=== PATIENT | male | born 1955 | race Caucasian/White ===

== ENCOUNTER 2019-07-31 18:50 | Observation (INO) | payer MEDICARE, OTHER ==
[~2019-07-31] VITALS: Ht 180.3 cm; Wt 94.0 kg
[~2019-07-31 18:50] MED LIST: Aspirin EC81 MG PO; B Complex-Foli1 EACH PO; B Complex1 EAC2 PO; CALCA500CH PO; CEPH500 PO; CHRO200 PO; CLON.5 PO; Crestor20 MG PO; DISU500; FISH OIL 1,2001 EAC1 PO; FISH1000 PO; Iron Supplemen325 MG PO; MAGNESIUM100 MG PO; MAGOXI400 PO; MELA3 PO; METO25ER PO; NAPR500 PO; NITR.4SL SL; OMEPRAZOLE20 MG PO; Pepcid40 MG PO; Percocet 5-3251 EACH PO; TRAM50 PO; Viagra100 MG PO; Vitamin C100 M1 PO; Vitamin C100 MG PO; Vitamin D400 UNI1 PO; ZOLP5 PO
[2019-07-31 19:22] LABS: BASOPHILS ABSOLUTE AUTO 0.05 K/mm3 (0.00-0.23); BASOPHILS PERCENT AUTO 1 % (0-2); EOSINOPHILS ABSOLUTE AUTO 0.19 K/mm3 (0.00-0.68); EOSINOPHILS PERCENT AUTO 2 % (0-6); Hematocrit 44.2 % (37.0-53.0); Hemoglobin 14.7 g/dL (13.5-17.5); IMMATURE GRAN ABSOLUTE AUTO 0.03 K/mm3 (0.00-0.10); IMMATURE GRAN PERCENT AUTO 0 % (0-1); LYMPHOCYTES ABSOLUTE AUTO 2.14 K/mm3 (0.84-5.20); LYMPHOCYTES PERCENT AUTO 23 % (21-46); MONOCYTES ABSOLUTE AUTO 0.73 K/mm3 (0.16-1.47); MONOCYTES PERCENT AUTO 8 % (4-13); Mean Corpuscular HGB 31.4 pg (26.0-34.0); Mean Corpuscular HGB Conc 33.3 g/dL (31.5-36.5); Mean Corpuscular Volume 94 fL (80-100); Mean Platelet Volume 10.8 fL (9.1-12.4); NEUTROPHILS ABSOLUTE AUTO 5.99 K/mm3 (1.96-9.15); NEUTROPHILS PERCENT AUTO 66 % (41-73); Platelet Count 183 K/mm3 (150-400); RDW Coefficient Variation 12.4 % (11.7-14.2); RDW Standard Deviation 43.2 fL (35.1-46.3); Red Blood Cell Count 4.68 M/mm3 (4.30-5.90); White Blood Cell Count 9.13 K/mm3 (4.00-11.30)
[2019-07-31 19:41] LABS: Alanine Aminotransfer (ALT/SGP 25 U/L (12-78); Albumin, Blood 3.7 g/dL (3.4-5.0); Albumin/Globulin Ratio 1.2 (0.8-1.8); Alk Phos 50 U/L (50-136); Anion Gap 8 mmol/L (6-16); Aspartate Aminotrans (AST/SGOT 21 U/L (12-37); Bilirubin, Total 0.5 mg/dL (0.1-1.0); Blood Urea Nitrogen 16 mg/dL (8-24); Bun/Creatinine Ratio 18.8 (12.0-20.0); CO2, Blood 22 mmol/L (21-32); Calcium, Blood 8.7 mg/dL (8.5-10.1); Chloride, Blood 106 mmol/L (98-108); Creatinine, Blood 0.85 mg/dL (0.60-1.20); Globulin, Blood 3.1 g/dL (2.2-4.0); Glomerular Filtration Rate >60 (60-); Glucose, Blood 98 mg/dL (70-99); Potassium, Blood 3.5 mmol/L (3.5-5.5); Sodium, Blood 136 mmol/L (136-145); Total Protein, Blood 6.8 g/dL (6.4-8.2); Troponin I <0.015 ng/mL (0.000-0.040)
[2019-07-31] MEDS ORDERED: Zaleplon5 MG PO (20:56)
[2019-07-31] MEDS ORDERED: OLOP.1OPSO BOTHEYES (20:57)
[2019-08-01 03:02] LABS: Hematocrit 44.4 % (37.0-53.0); Hemoglobin 14.9 g/dL (13.5-17.5); Mean Corpuscular HGB 31.2 pg (26.0-34.0); Mean Corpuscular HGB Conc 33.6 g/dL (31.5-36.5); Mean Corpuscular Volume 93 fL (80-100); Mean Platelet Volume 10.8 fL (9.1-12.4); Platelet Count 183 K/mm3 (150-400); RDW Coefficient Variation 12.5 % (11.7-14.2); RDW Standard Deviation 43.2 fL (35.1-46.3); Red Blood Cell Count 4.78 M/mm3 (4.30-5.90); White Blood Cell Count 7.45 K/mm3 (4.00-11.30)
[2019-08-01 03:21] LABS: Alanine Aminotransfer (ALT/SGP 23 U/L (12-78); Albumin, Blood 3.3 g/dL (3.4-5.0); Alk Phos 53 U/L (50-136); Anion Gap 6 mmol/L (6-16); Aspartate Aminotrans (AST/SGOT 22 U/L (12-37); Bilirubin, Total 0.5 mg/dL (0.1-1.0); Blood Urea Nitrogen 14 mg/dL (8-24); Bun/Creatinine Ratio 17.7 (12.0-20.0); CO2, Blood 24 mmol/L (21-32); Calcium, Blood 8.6 mg/dL (8.5-10.1); Chloride, Blood 110 mmol/L (98-108); Creatinine, Blood 0.79 mg/dL (0.60-1.20); Globulin, Blood 3.2 g/dL (2.2-4.0); Glomerular Filtration Rate >60 (60-); Glucose, Blood 136 mg/dL (70-99); Potassium, Blood 4.1 mmol/L (3.5-5.5); Sodium, Blood 140 mmol/L (136-145); Total Protein, Blood 6.5 g/dL (6.4-8.2)
[2019-08-01 03:22] LABS: Source, Urine Clean Catch
[2019-08-01 03:22] LABS: CPK Creatine Kinase 159 U/L (39-308); Troponin I <0.015 ng/mL (0.000-0.040)
[2019-08-01 03:25] LABS: Bilirubin, Urine Neg (Neg); Blood, Urine Neg (Neg); Glucose Qualitative, Urine Neg (Neg); Ketones, Urine Neg (Neg); Leukocyte Esterase, Urine Neg (Neg); Nitrite, Urine Neg (Neg); Protein, Urine Neg (Neg); Urobilinogen, Urine NORM (Normal)
[2019-08-01 03:35] LABS: Appearance, Urine Clear (Clear); Color, Urine Yellow (P-Yellow); U Amphetamine Screen Not Detected; U Barbituate Screen Not Detected; U Benzodiazapine Screen Not Detected; U Buprenorphine Screen Not Detected; U Cannabinoids Screen DETECTED; U Cocaine Screen Not Detected; U Methadone Screen Not Detected; U Methamphetamine Screen Not Detected; U Opiates Screen Not Detected; U Oxycodone Screen Not Detected; U Phencyclidine Screen Not Detected; U Propoxyphene Screen Not Detected
--- NOTE | 2019-08-01 05:24 | NUR ---
Shift Summary Pt arrived from ER after syncopal episode at home. Complained of mild sternal pain, and reported "friends did CPR". Cardiac workup negative. CIWA 0. Slept between cares/assessments.
[2019-08-01 11:41] LABS: CPK Creatine Kinase 130 U/L (39-308); Troponin I <0.015 ng/mL (0.000-0.040)
--- NOTE | 2019-08-01 14:48 | NUR ---
PATIENT IS NONCOMPLIANT. HE IS CONNECTED TO HIS TELEMETRY BOX WHICH HE HAS DISCONNECTED MORE THAN ONCE AFTER BEING EXPLAINED THE CURRENT CONCERN AND WHY HE AHS STAYED IN THE HOSPITAL. PATIENT HAS BEEN DISCONCERTED SINCE HE HAS BEEN IN THE HOSPITAL, AND IS ALREADY UPSET THAT HE HAS TO STAY OVERNIGHT BECAUSE OF THE STRESS TEST. HE FEELS THAT IT IS NOT NEEDED. I HAVE EXPLAINED THAT THE PATIENT IF HE WOULD LIKE TO LEAVE CAN SIGN AN AGAINST MEDICAL ADVICE PAPER. HE STATES THAT HE REFUSES TO LEAVE BECAUSE HE DOES NOT WANT TO PAY A DIME OUT OF POCKET. PATIENT HAS LEFT WITH HIS IV POLE CONNECTED AND HE HAS BEEN SPOKEN TO ALREADY. WILL CONTINUE TO MONITOR.
--- NOTE | 2019-08-01 17:00 | NUR ---
PATIENT IS AWARE THAT IF HE LEAVES THE HOSPITAL THIS WILL BE CONSIDERED A DISCHARGE AGAINST MEDICAL ADVICE. THE PATIENT REFUSED TO SIGN THE AMA PAPERWORK AND STATES THAT HE INTENDS TO FIGHT IT. HE STATES THAT HE WILL NOT BE STAYING ANOTHER NIGHT. HIS DEMAND FOR HIS IV TO BE REMOVED AND HIS TELEMETRY BOX TO BE REMOVED HAS BEEN ACCOMODATED IN ORDER FOR HIM TO DISCAHRGE. HE STATES THAT WE ARE INCOMPETENT AND I HAVE OFFERED THE PATIENT ADVOCATE'S NUMBER IN WHICH HE REFUSED. WE HAVE SPOKEN WITH HIM MANY TIMES ABOUT HIS CURRENT CONCERNS.
--- NOTE | 2019-08-01 17:17 | NUR ---
patient left [facility]a. dr. parsons notified. PATIENT REQUESTED TO SPEAK WITH THE PATIENT ADVOCATE. MESSAGE LEFT ON [employer] FOR Sunday.
== END 2019-08-01 17:16 | disposition left against medical advice (07) ==
LOC: ER 18:50 → MEDS 18:51
PROVIDERS: Emergency Medicine; ADMIT Internal Medicine
DX: I95.1 Orthostatic hypotension (principal); I46.9 Cardiac arrest, cause unspecified; F10.129 Alcohol abuse with intoxication, unspecified; F12.129 Cannabis abuse with intoxication, unspecified; E86.0 Dehydration; R07.9 Chest pain, unspecified; I10 Essential (primary) hypertension; E78.5 Hyperlipidemia, unspecified; Z95.1 Presence of aortocoronary bypass graft; I25.10 Atherosclerotic heart disease of native coronary artery without angina pectoris; Z85.038 Personal history of other malignant neoplasm of large intestine
CPT/HCPCS: 36415; 71046; 80053; 81003; 82550; 83735; 83880; 84484; 85025; 85027; 93005; 93010; 93306; 93880; 96374; 99285-25; G0378; J3411; J3475; J7030; J7042